=== PATIENT | male | born 1990 | race American Indian/Alaskan Native ===

== ENCOUNTER 2017-03-07 12:42 | Emergency (ER) | payer SELFPAY ==
[2017-03-07 12:43] VITALS: BMI 19.8
[2017-03-07 12:54] VITALS: BP 118/76; PULSE 97; O2SAT 98
[2017-03-07 12:56] VITALS: RESP 18; TEMP 98
[2017-03-07] MEDS ORDERED: Naproxen 550 mg Tab PO STA (13:34)
--- NOTE | 2017-03-07 14:24 | ED PDOC ---
Arrival/HPI - General Chief Complaint: Back Pain Time Seen by Provider: 03/07/17 13:33 Historian: Patient - History of Present Illness Narrative History of Present Illness (Text): 03/07/17 14:37 Patient reports 2 day h/o atraumatic pain in the lower back that is worse with movement which started after he was doing heavy lifting at work yesterday. Otherwise: (-) paresthesias, (-) weakness, (-) acute bowel or bladder dysfunction, (-) urinary symptoms, (-) fever. Has no history of prior back problem. Past Medical History - Provider Review Nursing Documentation Reviewed: Yes - Past History Past History: No Previous - Infectious Disease Hx of Infectious Diseases: None - Tetanus Immunization Tetanus Immunization: Unknown - Musculoskeletal/Rheumatological Hx Falls: No - Psychiatric Hx Depression: No Hx Emotional Abuse: No Hx Physical Abuse: No Hx Substance Use: Yes (occassionally) - Past Surgical History Past Surgical History: No Previous - Anesthesia Hx Anesthesia: No Hx Anesthesia Reactions: No Hx Malignant Hyperthermia: No - Suicidal Assessment Feels Threatened In Home Enviroment: No Family/Social History - Physician Review Nursing Documentation Reviewed: Yes Family/Social History: No Known Family HX Smoking Status: Current Some Days Smoker Hx Alcohol Use: Yes Frequency of alcohol use: Socially Hx Substance Use: Yes (occassionally) Substance used: marijuana Allergies/Home Meds Allergies/Adverse Reactions: Allergies No Known Allergies Allergy (Verified 03/07/17 12:53) Review of Systems - Review of Systems Constitutional: Normal. absent: Fatigue, Weight Change, Fevers Respiratory: Normal. absent: SOB, Cough, Sputum Cardiovascular: Normal. absent: Chest Pain, Palpitations Gastrointestinal: Normal. absent: Abdominal Pain, Stool Changes Musculoskeletal: Normal, Back Pain. absent: Arthralgias, Neck Pain Skin: Normal. absent: Rash, Pruritis, Skin Lesions Physical Exam - Physical Exam Narrative Physical Exam (Text): 03/07/17 14:35 GENERAL APPEARANCE: Patient is awake, alert, oriented x 3, in no acute distress. SKIN: Warm, dry; (-) cyanosis. EYES: (-) conjunctival pallor. ENMT: Mucous membranes moist. NECK: (-) tenderness, (-) stiffness, (-) lymphadenopathy. CHEST AND RESPIRATORY: (-) rales, (-) rhonchi, (-) wheezes; breath sounds equal bilaterally. HEART AND CARDIOVASCULAR: (-) irregularity; (-) murmur, (-) gallop. ABDOMEN AND GI: Soft; (-) tenderness; (-) palpable mass. BACK: Mild diffuse tenderness to the paralumbar area, (+) mild spasm, (+) direct bony tenderness to the L spine, (-) deformity. Straight leg raising (-) bilaterally. EXTREMITIES: (-) deformity. Distal pulses good bilaterally. NEURO AND PSYCH: Mental status as above. Intact sensation bilaterally; normal strength in extension of the knees, plantar and dorsiflexion of the toes. DTRs symmetric. Vital Signs Temp Pulse Resp BP Pulse Ox 03/07/17 12:56 98.0 F 97 H 18 118/76 98 03/07/17 12:48 98 F 97 H 20 118/76 98 Medical Decision Making ED Course and Treatment: 03/07/17 14:20 26 yo M c/o 2 day h/o low back pain, likely lumbar strain. XR L spine ordered. XR L spine: (-) fracture as read by PA. On reevaluation patient states that he feels well and denies any new complaints at this time. Patient has no focal neurological deficits on repeat examination. Patient states that he feels comfortable going home with outpatient follow-up. Patient states he understands to return to the ER right away for new or worsening symptoms and to f/u with workman's comp in 2 days without fail. Patient states that he fully agrees with and understands discharge instructions. States that she agrees with the plan and disposition. Verbalized and repeated discharge instructions and plan. I have given the patient opportunity to ask any additional questions. - RAD Interpretation Radiology Orders: 03/07/17 13:33 LS SPINE WITH OBL > 18 YRS OLD [RAD] Stat - Medication Orders Current Medication Orders: Discontinued Medications Naproxen (Anaprox Ds) 550 mg PO ONCE STA Stop: 03/07/17 13:35 Last Admin: 03/07/17 13:46 Dose: 550 MG - PA / DRAFTER SEISMOGRAPH / Resident Statement /DO has reviewed & agrees with the documentation as recorded. Disposition/Present on Arrival - Present on Arrival Any Indicators Present on Arrival: No History of DVT/PE: No History of Uncontrolled Diabetes: No Urinary Catheter: No History of Decub. Ulcer: No History Surgical Site Infection Following: None - Disposition Have Diagnosis and Disposition been Completed?: Yes Diagnosis: Lumbar strain Disposition: HOME/ ROUTINE Disposition Time: 14:23 Patient Plan: Discharge Patient Problems: Current Active Problems Problem Status Diagnosed Lumbar strain Acute Condition: STABLE Discharge Instructions (ExitCare): Muscle Strain (ED), Acute Low Back Pain (ED) Print Language: MACEDONIAN Additional Instructions: Thank you for letting us take care of you today. You were treated for muscle strain, low back pain. The emergency medical care you received today was directed at your acute symptoms. If you were prescribed any medication, please fill it and take as directed. It may take several days for your symptoms to resolve. Return to the Emergency Department if your symptoms worsen, do not improve, or if you have any other problems. Please contact Workmen's Comp. in 2 days for re-evaluation and follow up. Bring any paperwork you were given at discharge with you along with any medications you are taking to your follow up visit. Our treatment cannot replace ongoing medical care by a primary care provider (PCP) outside of the emergency department. Thank you for allowing the [facility] team to be part of your care today. Prescriptions: Cyclobenzaprine [Cyclobenzaprine HCl] 10 mg PO TID PRN #15 tab PRN Reason: Muscle Spasm Meloxicam [Mobic] 15 mg PO DAILY #20 tab Referrals: PCP,NO [Primary Care Provider] - Follow up with primary Forms: WORK NOTE
--- NOTE | 2017-03-07 15:38 | RAD ---
PROCEDURE: Lumbar spine 03/07/2017 HISTORY: pain COMPARISON: No prior. FINDINGS: BONES: No acute compression fractures no retropulsed fragments. Minor chronic appearing anterior stature loss of the T12, L1 and to a lesser degree L2 segments. Pedicles are intact. Very slight posterior subluxation L5 over S1. Remaining vertebral bodies otherwise exhibit normal alignment. Facets normally aligned. DISC SPACES: Disc space heights maintained. Facet joints are slightly overgrown at the L5-S1 and to a lesser degree L4-L5 levels. OTHER FINDINGS: None. IMPRESSION: No acute compression fractures. Very slight posterior subluxation L5 over S1. On minor overgrowth of the facet joints in the lower lumbar levels.
== END 2017-03-07 14:43 | disposition home or self-care (01) ==
LOC: ED 12:42
DX: S39.012A Strain of muscle, fascia and tendon of lower back, initial encounter (principal); X50.9XXA Other and unspecified overexertion or strenuous movements or postures, initial encounter; Y92.89 Other specified places as the place of occurrence of the external cause; Y99.0 Civilian activity done for income or pay

== ENCOUNTER 2017-07-17 19:52 | Emergency (ER) | payer SELFPAY ==
[2017-07-17 19:52] VITALS: BMI 19.8
[2017-07-17 20:07] VITALS: TEMP 98.4
--- NOTE | 2017-07-17 20:20 | ED PDOC ---
Arrival/HPI <Marino Escalera - Last Filed: 07/17/17 20:22> - General Historian: Patient <Rk Valencia - Last Filed: 07/17/17 20:32> - General Chief Complaint: ENT Problem Time Seen by Provider: 07/17/17 20:14 - History of Present Illness Narrative History of Present Illness (Text): 07/17/17 20:14 26 y/o male, no significant pmh, nkda, c/o sorethroat x 2 days. Aching pain, aggravated by swallowing, no drooling, no change in speech, no night sweat, no coughing, no fever or chills, no other medical or psychological complaints. ( Rk Valencia) Past Medical History - Provider Review Nursing Documentation Reviewed: Yes - Past History Past History: No Previous - Infectious Disease Hx of Infectious Diseases: None - Tetanus Immunization Tetanus Immunization: Unknown - Musculoskeletal/Rheumatological Hx Falls: No - Psychiatric Hx Depression: No Hx Emotional Abuse: No Hx Physical Abuse: No Hx Substance Use: Yes (occassionally) - Past Surgical History Past Surgical History: No Previous - Anesthesia Hx Anesthesia: No Hx Anesthesia Reactions: No Hx Malignant Hyperthermia: No - Suicidal Assessment Feels Threatened In Home Enviroment: No <Rk Valencia - Last Filed: 07/17/17 20:32> Family/Social History - Physician Review Nursing Documentation Reviewed: Yes Family/Social History: Unknown Family HX Smoking Status: Current Some Days Smoker Hx Alcohol Use: Yes Hx Substance Use: Yes (occassionally) Substance used: marijuana <Rk Valencia - Last Filed: 07/17/17 20:32> Allergies/Home Meds <Marino Escalera - Last Filed: 07/17/17 20:22> <Rk Valencia - Last Filed: 07/17/17 20:32> Allergies/Adverse Reactions: Allergies No Known Allergies Allergy (Verified 07/17/17 20:07) Review of Systems - Review of Systems Constitutional: absent: Fatigue, Fevers Eyes: absent: Vision Changes ENT: Sore Throat. absent: Hearing Changes Respiratory: absent: SOB, Cough Cardiovascular: absent: Chest Pain Gastrointestinal: absent: Abdominal Pain, Nausea, Vomiting Skin: absent: Rash, Pruritis Neurological: absent: Headache, Dizziness <Rk Valencia - Last Filed: 07/17/17 20:32> Physical Exam Vital Signs Reviewed: Yes Temperature: Afebrile Blood Pressure: Normal Pulse: Regular Respiratory Rate: Normal Appearance: Positive for: Well-Appearing, Non-Toxic Pain Distress: Moderate Mental Status: Positive for: Alert and Oriented X 3 - Systems Exam Head: Present: Atraumatic, Normocephalic Pupils: Present: PERRL Extroacular Muscles: Present: EOMI Conjunctiva: Present: Normal Mouth: Present: Moist Mucous Membranes Pharnyx: Present: ERYTHEMA, EXUDATE, TONSILS ENLARGED. No: Peritonsilar Swelling, Uvular Deviation, Muffled/Hoarse Voice, Strider, Soft Palate/Uvular Edema Neck: Present: Normal Range of Motion Respiratory/Chest: Present: Clear to Auscultation, Good Air Exchange. No: Respiratory Distress, Accessory Muscle Use Cardiovascular: Present: Regular Rate and Rhythm, Normal S1, S2. No: Murmurs Abdomen: Present: Normal Bowel Sounds. No: Tenderness, Distention, Peritoneal Signs Back: Present: Normal Inspection Upper Extremity: Present: Normal Inspection. No: Cyanosis, Edema Lower Extremity: Present: Normal Inspection. No: Edema Neurological: Present: GCS=15, Speech Normal, Motor Func Grossly Intact, Gait Normal, Memory Normal Skin: Present: Warm, Dry, Normal Color. No: Rashes Psychiatric: Present: Alert, Oriented x 3, Normal Insight, Normal Concentration <Rk Valencia - Last Filed: 07/17/17 20:32> Vital Signs Temp Pulse Resp BP Pulse Ox 07/17/17 20:04 98.4 F 83 20 113/80 98 Medical Decision Making <Marino Escalera - Last Filed: 07/17/17 20:22> <Rk Valencia - Last Filed: 07/17/17 20:32> ED Course and Treatment: 07/17/17 20:29 -augment/toradol/decadron -Discharge home with augmentin, motrin, soft food diet, stay hydrated, bed rest , follow up with your own pmd and ENT within 2 days, return to the ER for any new or worsening signs or symptoms. (Rk Valencia) - PA / RUG CLEANER / Resident Statement MD/DO has reviewed & agrees with the documentation as recorded. <Marino Escalera - Last Filed: 07/17/17 20:22> - PA / RUG CLEANER / Resident Statement / has reviewed & agrees with the documentation as recorded. <Rk Valencia - Last Filed: 07/17/17 20:32> Disposition/Present on Arrival <Marino Escalera - Last Filed: 07/17/17 20:22> - Present on Arrival Any Indicators Present on Arrival: No History of DVT/PE: No History of Uncontrolled Diabetes: No Urinary Catheter: No History of Decub. Ulcer: No History Surgical Site Infection Following: None - Disposition Have Diagnosis and Disposition been Completed?: Yes Disposition Time: 20:31 Patient Plan: Discharge <Rk Valencia - Last Filed: 07/17/17 20:32> - Disposition Diagnosis: Tonsillitis with exudate Disposition: HOME/ ROUTINE Condition: GOOD Additional Instructions: -Discharge home with augmentin, motrin, soft food diet, stay hydrated, bed rest , follow up with your own pmd and ENT within 2 days, return to the ER for any new or worsening signs or symptoms. Prescriptions: Amoxicillin/Clavulanate [Augmentin 875 MG-125 MG] 1 tab PO BID #20 tab Ibuprofen [Motrin Tab] 600 mg PO QID PRN #24 tab PRN Reason: Other Referrals: PCP,NO [Primary Care Provider] - Follow up with primary [facility] [place] [Outside] - Follow up with primary Bryan Strong DO [Staff Provider] - Follow up with primary Forms: [employer] (Burmese)
[2017-07-17] MEDS ORDERED: Amoxicillin-Clav 875-125 mg Tab PO STA (20:26)
[2017-07-17 22:01] VITALS: BP 114/82; PULSE 79; RESP 16; O2SAT 100
== END 2017-07-17 21:00 | disposition home or self-care (01) ==
LOC: ED 19:52
DX: J03.90 Acute tonsillitis, unspecified (principal); F17.210 Nicotine dependence, cigarettes, uncomplicated
CPT/HCPCS: 96372; 99283; J1100; J1885

== ENCOUNTER 2017-08-29 15:09 | Emergency (ER) | payer OTHER ==
[2017-08-29 15:10] VITALS: BMI 19.8
[2017-08-29 15:19] VITALS: BP 105/70; PULSE 83; RESP 18; TEMP 99
[2017-08-29] MEDS ORDERED: Fluorescein 1 mg Ophthalmic Strip OD ONE (15:38)
[2017-08-29] MEDS ORDERED: Fluorescein 1 mg Ophthalmic Strip OU ONE (15:42)
--- NOTE | 2017-08-29 15:46 | ED PDOC ---
Arrival/HPI <Juan Pablo Wilkinson - Last Filed: 08/29/17 16:17> - General Historian: Patient <Indu Zamudio - Last Filed: 08/29/17 16:25> - General Time Seen by Provider: 08/29/17 15:10 - History of Present Illness Narrative History of Present Illness (Text): 26 year old male with a past medical history of eczema who presents with right lateral lid irritation. 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 His symptoms are aggravated anytime he enters or leaves the freezer he works in. He reports that he has been applying warm compresses to the right eye at night which have improved his symptoms. Upon awakening this mornings, his right lateral lid was somewhat swollen and crusted over. He denies any visual changes, eye pain with movement, but admits to generalized itchiness of the eyes. 08/29/17 16:00 (Juan Pablo Wilkinson) Past Medical History - Provider Review Nursing Documentation Reviewed: Yes - Past History Past History: No Previous - Infectious Disease Hx of Infectious Diseases: None - Tetanus Immunization Tetanus Immunization: Unknown - Cardiac Hx Cardiac Disorders: No - Pulmonary Hx Respiratory Disorders: No - Neurological Hx Neurological Disorder: No - HEENT Hx HEENT Disorder: No - Renal Hx Renal Disorder: No - Endocrine/Metabolic Hx Endocrine Disorders: No - Hematological/Oncological Hx Blood Disorders: No - Integumentary Hx Dermatological Disorder: No - Musculoskeletal/Rheumatological Hx Falls: No - Gastrointestinal Hx Gastrointestinal Disorders: No - Genitourinary/Gynecological Hx Genitourinary Disorders: No - Psychiatric Hx Psychophysiologic Disorder: No Hx Depression: No Hx Emotional Abuse: No Hx Physical Abuse: No Hx Substance Use: Yes (occassionally) - Past Surgical History Past Surgical History: No Previous - Anesthesia Hx Anesthesia: No Hx Anesthesia Reactions: No Hx Malignant Hyperthermia: No - Suicidal Assessment Feels Threatened In Home Enviroment: No <Juan Pablo Wilkinson - Last Filed: 08/29/17 16:17> Family/Social History - Physician Review Nursing Documentation Reviewed: Yes Family/Social History: No Known Family HX Smoking Status: Current Some Days Smoker Hx Alcohol Use: Yes Hx Substance Use: Yes (occassionally) Substance used: marijuana <Juan Pablo Wilkinson - Last Filed: 08/29/17 16:17> Allergies/Home Meds <Juan Pablo Wilkinson - Last Filed: 08/29/17 16:17> <Indu Zamudio - Last Filed: 08/29/17 16:25> Allergies/Adverse Reactions: Allergies Penicillins Allergy (Verified 08/29/17 15:36) ITCHING Review of Systems - Review of Systems Constitutional: Normal. absent: Fatigue, Fevers Eyes: absent: Vision Changes, Photophobia, Eye Pain ENT: Normal. absent: Tinnitus, Rhinorrhea Respiratory: absent: SOB, Cough, Sputum Cardiovascular: absent: Chest Pain, Palpitations, Edema Gastrointestinal: absent: Abdominal Pain, Stool Changes, Constipation Genitourinary Male: absent: Dysuria, Frequency, Hematuria Musculoskeletal: absent: Arthralgias, Back Pain, Neck Pain Skin: Rash, Skin Lesions. absent: Pruritis Neurological: absent: Headache, Dizziness, Focal Weakness Hemo/Lymphatic: absent: Easy Bleeding, Easy Bruising Psychiatric: absent: Anxiety, Depression <Juan Pablo Wilkinson - Last Filed: 08/29/17 16:17> Physical Exam Temperature: Afebrile Blood Pressure: Normal Pulse: Regular Respiratory Rate: Normal Appearance: Positive for: Well-Appearing Pain Distress: None Mental Status: Positive for: Alert and Oriented X 3 - Systems Exam Head: Present: Atraumatic, Normocephalic Pupils: Present: PERRL Extroacular Muscles: Present: EOMI Conjunctiva: Present: Injected (right eye) Ears: Present: Normal Mouth: Present: Moist Mucous Membranes Respiratory/Chest: Present: Clear to Auscultation, Good Air Exchange. No: Respiratory Distress, Accessory Muscle Use Cardiovascular: Present: Regular Rate and Rhythm, Normal S1, S2 Abdomen: Present: Normal Bowel Sounds. No: Tenderness, Distention Back: Present: Normal Inspection. No: CVA Tenderness Upper Extremity: Present: Normal Inspection. No: Cyanosis, Edema Lower Extremity: Present: Normal Inspection. No: Edema, CALF TENDERNESS Neurological: Present: CN II-XII Intact, Speech Normal Skin: Present: Warm, Dry, Normal Color Psychiatric: Present: Alert, Oriented x 3, Normal Insight <Juan Pablo Wilkinson - Last Filed: 08/29/17 16:17> Vital Signs Temp Pulse Resp BP Pulse Ox 08/29/17 16:05 18 99 08/29/17 15:20 99.0 F 83 18 105/70 97 08/29/17 15:18 99.0 F 83 18 105/70 97 Medical Decision Making <Juan Pablo Wilkinson - Last Filed: 08/29/17 16:17> <Indu Zamudio - Last Filed: 08/29/17 16:25> ED Course and Treatment: 0.5% of Tetracaine drop applied to OD followed by fluorescein dye. OD was examined under Myers UV light, no corneal abrasion or corneal ulcers noted. 08/29/17 16:12 (Juan Pablo Wilkinson) 08/29/17 In agreement with resident note, which includes further HPI details. Patient was seen and evaluated with resident, came up with plan and treatment together. (Indu Zamudio) - Medication Orders Current Medication Orders: Discontinued Medications Fluorescein Sodium (Lrtto-S-Qrhdk A.T.) 1 mg OD ONCE ONE Stop: 08/29/17 15:39 Fluorescein Sodium (Ozesh-P-Hdqsf A.T.) 1 mg OU ONCE ONE Stop: 08/29/17 15:43 <Juan Pablo Wilkinson - Last Filed: 08/29/17 16:17> - PA / RESEARCH INSTRUCTOR / Resident Statement MD/DO has reviewed & agrees with the documentation as recorded. MD/DO has examined the patient and agrees with the treatment plan. - Scribe Statement The provider has reviewed the documentation as recorded by the Scribe <Indu Zamudio - Last Filed: 08/29/17 16:25> - Scribe Statement Angela Hoyos Provider Scribe Attestation: All medical record entries made by the Scribe were at my direction and personally dictated by me. I have reviewed the chart and agree that the record accurately reflects my personal performance of the history, physical exam, medical decision making, and the department course for this patient. I have also personally directed, reviewed, and agree with the discharge instructions and disposition. (Indu Zamudio) Disposition/Present on Arrival - Present on Arrival Any Indicators Present on Arrival: No History of DVT/PE: No History of Uncontrolled Diabetes: No Urinary Catheter: No History of Decub. Ulcer: No History Surgical Site Infection Following: None - Disposition Have Diagnosis and Disposition been Completed?: Yes Disposition Time: 16:16 Patient Plan: Discharge <Juan Pablo Wilkinson - Last Filed: 08/29/17 16:17> - Disposition Patient Plan: Discharge <Indu Zamudio - Last Filed: 08/29/17 16:25> - Disposition Diagnosis: Eye irritation Disposition: HOME/ ROUTINE Condition: GOOD Additional Instructions: 1) Please return to nearest ED should your symptoms worsen 2) Please take any medication prescribed as directed. Prescriptions: Erythromycin 0.5% [Ilytocin] 3.5 gm OD BID #1 tube Olopatadine HCl [Pataday] 2.5 ml OD BID #1 drops Forms: WORK NOTE
[2017-08-29 16:06] VITALS: O2SAT 99
== END 2017-08-29 16:05 | disposition home or self-care (01) ==
LOC: ED 15:09
DX: H57.8 Other specified disorders of eye and adnexa (principal)

== ENCOUNTER 2018-01-02 12:40 | Emergency (ER) | payer OTHER ==
[2018-01-02 12:42] VITALS: BMI 19.8
[2018-01-02 13:07] VITALS: BP 118/73; PULSE 72; RESP 18; TEMP 98.6; O2SAT 98
--- NOTE | 2018-01-02 13:24 | ED PDOC ---
Arrival/HPI - General Chief Complaint: Upper Extremity Problem/Injury Time Seen by Provider: 01/02/18 13:12 Past Medical History - Past History Past History: No Previous - Infectious Disease Hx of Infectious Diseases: None - Tetanus Immunization Tetanus Immunization: Unknown - Cardiac Hx Cardiac Disorders: No - Pulmonary Hx Respiratory Disorders: No - Neurological Hx Neurological Disorder: No - HEENT Hx HEENT Disorder: No - Renal Hx Renal Disorder: No - Endocrine/Metabolic Hx Endocrine Disorders: No - Hematological/Oncological Hx Blood Disorders: No - Integumentary Hx Dermatological Disorder: No - Musculoskeletal/Rheumatological Hx Falls: No - Gastrointestinal Hx Gastrointestinal Disorders: No - Genitourinary/Gynecological Hx Genitourinary Disorders: No - Psychiatric Hx Psychophysiologic Disorder: No Hx Depression: No Hx Emotional Abuse: No Hx Physical Abuse: No Hx Substance Use: Yes (occassionally) - Past Surgical History Past Surgical History: No Previous - Anesthesia Hx Anesthesia: No Hx Anesthesia Reactions: No Hx Malignant Hyperthermia: No - Suicidal Assessment Feels Threatened In Home Enviroment: No Family/Social History Family/Social History: No Known Family HX Smoking Status: Current Some Days Smoker Hx Alcohol Use: Yes Frequency of alcohol use: Socially Hx Substance Use: Yes (occassionally) Substance used: marijuana Allergies/Home Meds Allergies/Adverse Reactions: Allergies Penicillins Allergy (Verified 01/02/18 13:07) ITCHING Physical Exam Vital Signs Temp Pulse Resp BP Pulse Ox 01/02/18 13:03 98.6 F 72 18 118/73 98 Medical Decision Making - Medication Orders Current Medication Orders: Discontinued Medications Ibuprofen (Motrin Tab) 600 mg PO STAT STA Stop: 01/02/18 13:22 Last Admin: 01/02/18 13:28 Dose: 600 mg MAR Pain/Vitals Document 01/02/18 13:28 ALEXANDRA (Rec: 01/02/18 13:30 ALEXANDRA [id number]) Pain Reassessment Is This A Pain ReAssessment? Yes Sleep Is patient sleeping during reassessment? No Presence of Pain Presence of Pain Yes Pain Scale Used Pain Scale Used Numeric Location Left, Right or Bilateral Right Pain Location Body Site Arm Description Intermittent Disposition/Present on Arrival - Present on Arrival Any Indicators Present on Arrival: No History of DVT/PE: No History of Uncontrolled Diabetes: No Urinary Catheter: No History of Decub. Ulcer: No History Surgical Site Infection Following: None - Disposition Have Diagnosis and Disposition been Completed?: Yes Diagnosis: Neuropraxia of right upper extremity Disposition: HOME/ ROUTINE Disposition Time: 13:30 Patient Plan: Discharge Condition: STABLE Prescriptions: Ibuprofen [Motrin] 600 mg PO TID PRN #10 tab PRN Reason: Pain, Moderate (4-7) Referrals: PCP,NO [Primary Care Provider] - Follow up with primary Forms: [employer] ([place]), WORK NOTE
--- NOTE | 2018-01-02 13:26 | ED PDOC ---
Arrival/HPI - General Chief Complaint: Upper Extremity Problem/Injury Time Seen by Provider: 01/02/18 13:12 - History of Present Illness Narrative History of Present Illness (Text): 01/02/18 13:19 A 27 year old male, whose past medical history includes eczema, presents to the emergency department complaining of right upper arm pain. Patient reports was fixing stove and felt a sudden shock. Had experienced some tingling to right arm. The following day, patient began experiencing pain. Patient became concerned and decided to come to the ER for further evaluation. No PMD Symptom Onset: Sudden, Gradual Symptom Course: Unchanged Past Medical History - Provider Review Nursing Documentation Reviewed: Yes - Past History Past History: No Previous - Infectious Disease Hx of Infectious Diseases: None - Tetanus Immunization Tetanus Immunization: Unknown - Cardiac Hx Cardiac Disorders: No - Pulmonary Hx Respiratory Disorders: No - Neurological Hx Neurological Disorder: No - HEENT Hx HEENT Disorder: No - Renal Hx Renal Disorder: No - Endocrine/Metabolic Hx Endocrine Disorders: No - Hematological/Oncological Hx Blood Disorders: No - Integumentary Hx Dermatological Disorder: No - Musculoskeletal/Rheumatological Hx Falls: No - Gastrointestinal Hx Gastrointestinal Disorders: No - Genitourinary/Gynecological Hx Genitourinary Disorders: No - Psychiatric Hx Psychophysiologic Disorder: No Hx Depression: No Hx Emotional Abuse: No Hx Physical Abuse: No Hx Substance Use: Yes (occassionally) - Past Surgical History Past Surgical History: No Previous - Anesthesia Hx Anesthesia: No Hx Anesthesia Reactions: No Hx Malignant Hyperthermia: No - Suicidal Assessment Feels Threatened In Home Enviroment: No Family/Social History - Physician Review Nursing Documentation Reviewed: Yes Family/Social History: No Known Family HX Smoking Status: Current Some Days Smoker Hx Alcohol Use: Yes Frequency of alcohol use: Socially Hx Substance Use: Yes (occassionally) Substance used: marijuana Allergies/Home Meds Allergies/Adverse Reactions: Allergies Penicillins Allergy (Verified 01/02/18 13:07) ITCHING Review of Systems - Physician Review All systems were reviewed & negative as marked: Yes - Review of Systems Constitutional: absent: Fevers, Night Sweats Musculoskeletal: Other (right upper arm pain) Neurological: absent: Headache, Dizziness, Focal Weakness Physical Exam Vital Signs Reviewed: Yes Vital Signs Temp Pulse Resp BP Pulse Ox 01/02/18 13:03 98.6 F 72 18 118/73 98 Temperature: Afebrile Blood Pressure: Normal Pulse: Regular Respiratory Rate: Normal Appearance: Positive for: Well-Appearing Pain Distress: None Mental Status: Positive for: Alert and Oriented X 3 - Systems Exam Head: Present: Atraumatic, Normocephalic Pupils: Present: PERRL Extroacular Muscles: Present: EOMI Conjunctiva: Present: Normal Mouth: Present: Moist Mucous Membranes Neck: Present: Normal Range of Motion Respiratory/Chest: Present: Clear to Auscultation, Good Air Exchange. No: Respiratory Distress, Accessory Muscle Use Cardiovascular: Present: Regular Rate and Rhythm, Normal S1, S2. No: Murmurs Abdomen: Present: Normal Bowel Sounds. No: Tenderness, Distention, Peritoneal Signs Back: Present: Normal Inspection Upper Extremity: Present: Normal Inspection, Normal ROM, NORMAL PULSES, Neurovascularly Intact, Other (right upper arm soreness). No: Cyanosis, Edema Lower Extremity: Present: Normal Inspection. No: Edema Neurological: Present: GCS=15, CN II-XII Intact, Speech Normal Skin: Present: Warm, Dry, Normal Color. No: Rashes Psychiatric: Present: Alert, Oriented x 3, Normal Insight, Normal Concentration Medical Decision Making ED Course and Treatment: 01/02/18 13:21 Impression: 27 year old male with right upper arm pain. No acute findings on physical examination. Plan: -- Motrin -- Reassess and disposition Prior Visits: Notes and results from previous visits were reviewed. Patient was last seen in the emergency department on 08/29/2017 for right lateral lid irritation. Patient was d/c home. Progress Notes: - Medication Orders Current Medication Orders: Discontinued Medications Ibuprofen (Motrin Tab) 600 mg PO STAT STA Stop: 01/02/18 13:22 Last Admin: 01/02/18 13:28 Dose: 600 mg MAR Pain/Vitals Document 01/02/18 13:28 ALEXANDRA (Rec: 01/02/18 13:30 ALEXANDRA [id number]) Pain Reassessment Is This A Pain ReAssessment? Yes Sleep Is patient sleeping during reassessment? No Presence of Pain Presence of Pain Yes Pain Scale Used Pain Scale Used Numeric Location Left, Right or Bilateral Right Pain Location Body Site Arm Description Intermittent - Scribe Statement The provider has reviewed the documentation as recorded by the Rg Gustafson Provider Scribe Attestation: All medical record entries made by the Scribe were at my direction and personally dictated by me. I have reviewed the chart and agree that the record accurately reflects my personal performance of the history, physical exam, medical decision making, and the department course for this patient. I have also personally directed, reviewed, and agree with the discharge instructions and disposition. Disposition/Present on Arrival - Present on Arrival Any Indicators Present on Arrival: No History of DVT/PE: No History of Uncontrolled Diabetes: No Urinary Catheter: No History of Decub. Ulcer: No History Surgical Site Infection Following: None - Disposition Have Diagnosis and Disposition been Completed?: Yes Diagnosis: Neuropraxia of right upper extremity Disposition: HOME/ ROUTINE Disposition Time: 13:30 Patient Plan: Discharge Condition: STABLE Prescriptions: Ibuprofen [Motrin] 600 mg PO TID PRN #10 tab PRN Reason: Pain, Moderate (4-7) Referrals: PCP,NO [Primary Care Provider] - Follow up with primary Forms: [facility] (Mexican), WORK NOTE
--- NOTE | 2018-01-02 20:37 | CARD ---
APPROVED REPORT EKG Measurement Heart [id number] <Conclusion> Normal sinus rhythm Possible Left atrial enlargement Borderline ECG
== END 2018-01-02 13:27 | disposition home or self-care (01) ==
LOC: ED 12:40
DX: S44.91XA Injury of unspecified nerve at shoulder and upper arm level, right arm, initial encounter (principal); W86.8XXA Exposure to other electric current, initial encounter; Y92.89 Other specified places as the place of occurrence of the external cause

== ENCOUNTER 2018-01-30 14:59 | Emergency (ER) | payer OTHER ==
[2018-01-30 15:00] VITALS: BMI 19.8
[2018-01-30 15:11] VITALS: RESP 18; TEMP 97.7
--- NOTE | 2018-01-30 15:25 | ED PDOC ---
Arrival/HPI - General Chief Complaint: Abnormal Skin Integrity Time Seen by Provider: 01/30/18 15:19 Historian: Patient - History of Present Illness Narrative History of Present Illness (Text): 01/30/18 15:19 27 y/o male, pmh including cellulitis, penicillin allergy, last tetanus under 7 years ago, c/o lt. foot itching and pain x 2-3 weeks. Pt. stated that he has chronic sweating feet and sweat alot during the work, been having itching between the toes and lt. foot, been scratching the lt. foot dorsum region for the past 2-3 weeks, noticed to have pain yesterday which radiating to the lt. calf region, no numbness or tingling, no back pain, no urinary or bowel incontinence or retentin, no night sweat, no other medical or psychological complaints. Past Medical History - Provider Review Nursing Documentation Reviewed: Yes - Past History Past History: No Previous - Infectious Disease Hx of Infectious Diseases: None - Tetanus Immunization Tetanus Immunization: Unknown - Cardiac Hx Cardiac Disorders: No - Pulmonary Hx Respiratory Disorders: No - Neurological Hx Neurological Disorder: No - HEENT Hx HEENT Disorder: No - Renal Hx Renal Disorder: No - Endocrine/Metabolic Hx Endocrine Disorders: No - Hematological/Oncological Hx Blood Disorders: No - Integumentary Hx Dermatological Disorder: No - Musculoskeletal/Rheumatological Hx Falls: No - Gastrointestinal Hx Gastrointestinal Disorders: No - Genitourinary/Gynecological Hx Genitourinary Disorders: No - Psychiatric Hx Psychophysiologic Disorder: No Hx Substance Use: Yes (occassionally) - Past Surgical History Past Surgical History: No Previous - Anesthesia Hx Anesthesia: No Hx Anesthesia Reactions: No Hx Malignant Hyperthermia: No - Suicidal Assessment Feels Threatened In Home Enviroment: No Family/Social History - Physician Review Nursing Documentation Reviewed: Yes Family/Social History: Unknown Family HX Smoking Status: Heavy Smoker > 10 Cigarettes Daily Hx Alcohol Use: Yes Frequency of alcohol use: Socially Hx Substance Use: Yes (occassionally) Substance used: marijuana Allergies/Home Meds Allergies/Adverse Reactions: Allergies Penicillins Allergy (Verified 01/30/18 15:11) ITCHING Review of Systems - Review of Systems Constitutional: absent: Fatigue, Fevers Eyes: absent: Vision Changes ENT: absent: Hearing Changes Respiratory: absent: SOB, Cough Cardiovascular: absent: Chest Pain Gastrointestinal: absent: Abdominal Pain, Nausea, Vomiting Musculoskeletal: Myalgias. absent: Arthralgias Skin: Rash, Pruritis, Skin Lesions. absent: Laceration, Abscess, Ulcer, Cellulitis Neurological: absent: Headache, Dizziness Psychiatric: absent: Anxiety, Depression, Suicidal Ideation Physical Exam Vital Signs Reviewed: Yes Vital Signs Temp Pulse Resp BP Pulse Ox 01/30/18 15:06 97.7 F 96 H 18 129/82 97 Temperature: Afebrile Blood Pressure: Normal Pulse: Regular Respiratory Rate: Normal Appearance: Positive for: Well-Appearing, Non-Toxic, Comfortable Pain Distress: Mild Mental Status: Positive for: Alert and Oriented X 3 - Systems Exam Head: Present: Atraumatic, Normocephalic Pupils: Present: PERRL Extroacular Muscles: Present: EOMI Conjunctiva: Present: Normal Neck: Present: Normal Range of Motion Respiratory/Chest: Present: Clear to Auscultation, Good Air Exchange. No: Respiratory Distress, Accessory Muscle Use Cardiovascular: Present: Regular Rate and Rhythm, Normal S1, S2. No: Murmurs Abdomen: Present: Normal Bowel Sounds. No: Tenderness, Distention, Peritoneal Signs Back: Present: Normal Inspection Upper Extremity: Present: Normal Inspection. No: Cyanosis, Edema Lower Extremity: Present: Normal Inspection, Other (Lt. lower extremity: visible approx. [id number] maculepapule rash with skin breaking noted, visible skin lichenification noted between the toes, +DPPT pulses, capillary refill < 2 seconds, neurovascular intact. ). No: Edema Neurological: Present: GCS=15, CN II-XII Intact, Speech Normal Skin: Present: Warm, Dry, Normal Color. No: Rashes Psychiatric: Present: Alert, Oriented x 3, Normal Insight, Normal Concentration Medical Decision Making ED Course and Treatment: 01/30/18 15:29 -LLE venuous doppler -PO cleocin to prophylatic cover from superficial skin bacteria, lotrisone -observe and reassess 01/30/18 17:23 -Pain decreased, feeling much better. 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 - RAD Interpretation Radiology Orders: 01/30/18 15:25 DUPLEX LOWER EXTRM VEIN LEFT [US] Stat LLE Venuous doppler: as per preliminary report, no acute DVT Supervisor Paper Coating: Radiologist - Medication Orders Current Medication Orders: Discontinued Medications Betamethasone/Clotrimazole (Lotrisone) 4 gm TOP STAT STA Stop: 01/30/18 15:29 Last Admin: 01/30/18 15:48 Dose: 4 gm Clindamycin HCl (Cleocin) 300 mg PO STAT STA PRN Reason: Protocol Stop: 01/30/18 15:26 Last Admin: 01/30/18 15:48 Dose: 300 mg Ibuprofen (Motrin Tab) 600 mg PO STAT STA Stop: 01/30/18 15:26 Last Admin: 01/30/18 15:47 Dose: 600 mg - PA / SOFTWARE QUALITY ASSURANCE SPECIALIST / Resident Statement / has reviewed & agrees with the documentation as recorded. Disposition/Present on Arrival - Present on Arrival Any Indicators Present on Arrival: No History of DVT/PE: No History of Uncontrolled Diabetes: No Urinary Catheter: No History of Decub. Ulcer: No History Surgical Site Infection Following: None - Disposition Have Diagnosis and Disposition been Completed?: Yes Diagnosis: Tinea pedis, Visit for wound check Disposition: HOME/ ROUTINE Disposition Time: 15:31 Patient Plan: Discharge Patient Problems: Current Active Problems Problem Status Onset Tinea pedis Acute Visit for wound check Acute Condition: GOOD Additional Instructions: -Discharge home with cleocin, lotrisone cream, motrin, keep the feet dry and clean, avoid wearing contaminated shoes, follow up with your own pmd and shipfitter/manager mechanical within 2 days, return to the ER for any new or worsening signs or symptoms. Prescriptions: Clindamycin [Cleocin] 300 mg PO TID #30 cap Clotrimazole/Betamethasone [Lotrisone] 1 appl EXT BID #60 g Ibuprofen [Motrin] 600 mg PO QID PRN #35 tab PRN Reason: Other Referrals: PCP,NO [Primary Care Provider] - Follow up with primary Erin Pierre MD [Staff Provider] - [place] up [place] [facility] [place] - Follow up with primary Forms: WORK NOTE
[2018-01-30] MEDS ORDERED: Clotrimazole/Betamethasone Cream(15 gm) TOP STA (15:28)
[2018-01-30 17:44] VITALS: BP 124/79; PULSE 78; O2SAT 98
--- NOTE | 2018-01-30 19:19 | US ---
PROCEDURE: Left lower extremity venous US HISTORY: Leg pain and swelling. Evaluate for DVT. PHYSICIAN(S): Mckay Jeffers MD. TECHNIQUE: Duplex sonography and color-flow Doppler with graded compression were used to evaluate the deep venous system of the left lower extremity. FINDINGS: The visualized deep venous system of the left lower extremity is sonographically normal and compressible. Normal wave forms and augmentation are seen. There is no sonographic evidence for deep venous thrombosis in the visualized segments of the left lower extremity. IMPRESSION: 1. No sonographic evidence for deep venous thrombosis in the visualized segments of the left lower extremity.
== END 2018-01-30 17:45 | disposition home or self-care (01) ==
LOC: ED 14:59
DX: B35.3 Tinea pedis (principal); Z51.89 Encounter for other specified aftercare

== ENCOUNTER 2018-04-04 15:58 | Emergency (ER) | payer OTHER ==
[2018-04-04 15:58] VITALS: BMI 19.8
--- NOTE | 2018-04-04 16:17 | ED PDOC ---
Arrival/HPI - General Time Seen by Provider: 04/04/18 16:17 Historian: Patient - History of Present Illness Narrative History of Present Illness (Text): 04/04/18 16:17 Patient is not in the room. Patient still in triage. 04/04/18 17:20 This 27 yo male presents to this ED c/o left foot skin is dry x 2 months. Patient stated he was seen in this ED a month ago for itching foot. Patient was give a cream which it has improved the itching, however sking feels thick and dry. Patient noted a pmh Eczema. Patient also noted right anterior thigh pain. Patient admits similar symptoms in the past. Patient denies trauma, skin rash on his thigh, swelling, ecchymosis, calf pain, leg swelling, groin pain, testicular pain, penil discharge, weakness, paresthesias, or abnormal gait. Time/Duration: Other (see hpi) Context: Home Past Medical History - Provider Review Nursing Documentation Reviewed: Yes - Past History Past History: No Previous - Infectious Disease Hx of Infectious Diseases: None - Tetanus Immunization Tetanus Immunization: Unknown - Cardiac Hx Cardiac Disorders: No - Pulmonary Hx Respiratory Disorders: No - Neurological Hx Neurological Disorder: No - HEENT Hx HEENT Disorder: No - Renal Hx Renal Disorder: No - Endocrine/Metabolic Hx Endocrine Disorders: No - Hematological/Oncological Hx Blood Disorders: No - Integumentary Hx Dermatological Disorder: No - Musculoskeletal/Rheumatological Hx Falls: No - Gastrointestinal Hx Gastrointestinal Disorders: No - Genitourinary/Gynecological Hx Genitourinary Disorders: No - Psychiatric Hx Psychophysiologic Disorder: No Hx Substance Use: Yes (occassionally) - Past Surgical History Past Surgical History: No Previous - Anesthesia Hx Anesthesia: No Hx Anesthesia Reactions: No Hx Malignant Hyperthermia: No - Suicidal Assessment Feels Threatened In Home Enviroment: No Family/Social History - Physician Review Nursing Documentation Reviewed: Yes Family/Social History: Other (noncontributory) Smoking Status: Heavy Smoker > 10 Cigarettes Daily Hx Alcohol Use: Yes Hx Substance Use: Yes (occassionally) Substance used: marijuana Allergies/Home Meds Allergies/Adverse Reactions: Allergies Penicillins Allergy (Verified 04/04/18 16:29) ITCHING Review of Systems - Review of Systems Constitutional: Normal. absent: Fatigue, Weight Change, Fevers, Night Sweats Eyes: Normal ENT: Normal Respiratory: Normal. absent: SOB, Cough, Sputum, Wheezing Cardiovascular: Normal. absent: Chest Pain, Palpitations Gastrointestinal: Normal. absent: Abdominal Pain, Nausea, Vomiting Genitourinary Male: Normal. absent: Dysuria, Frequency, Hematuria Musculoskeletal: Normal Skin: Other (see hpi) Neurological: Normal. absent: Headache, Dizziness, Focal Weakness, Gait Changes , Speech Changes, Facial Droop, Disequilibrium Endocrine: Normal Hemo/Lymphatic: Normal Psychiatric: Normal Physical Exam Vital Signs Temp Pulse Resp BP Pulse Ox 04/04/18 16:22 98.1 F 73 16 108/66 100 Temperature: Afebrile Blood Pressure: Normal Pulse: Regular Respiratory Rate: Normal Appearance: Positive for: Well-Appearing, Non-Toxic, Comfortable Pain Distress: None Mental Status: Positive for: Alert and Oriented X 3 - Systems Exam Head: Present: Atraumatic, Normocephalic Pupils: Present: PERRL Extroacular Muscles: Present: EOMI Conjunctiva: Present: Normal Mouth: Present: Moist Mucous Membranes Neck: Present: Normal Range of Motion Genitourinary Male: Present: Other (patient declined examination.) Back: Present: Normal Inspection. No: CVA Tenderness Upper Extremity: Present: Normal Inspection, Normal ROM. No: Cyanosis, Edema Lower Extremity: Present: Normal ROM, Other ((+) eczema like skin dryness on dorsal aspect of left foot. No cellulitis, no abscess, no calf tenderness b/l, no leg swelling b/l.). No: Edema Neurological: Present: GCS=15, CN II-XII Intact, Speech Normal, Motor Func Grossly Intact, Normal Sensory Function, Normal Cerebellar Funct, Gait Normal, Memory Normal Skin: Present: Warm, Dry, Normal Color. No: Rashes Psychiatric: Present: Alert, Oriented x 3, Normal Insight, Normal Concentration Medical Decision Making ED Course and Treatment: 04/04/18 17:47 Re-evaluation. Patient feels better. Discussed results and plan with patient who expresses understanding. All questions answered and there is agreement with the plan to discharge home with instructions. Patient stable for discharge. Return if symptoms persist or worsen. 04/04/18 17:47 Previous charts, labs and imaging report were reviewed. Re-evaluation Time: 17:47 Reassessment Condition: Re-examined, Unchanged Disposition/Present on Arrival - Present on Arrival Any Indicators Present on Arrival: No History of DVT/PE: No History of Uncontrolled Diabetes: No Urinary Catheter: No History Surgical Site Infection Following: None - Disposition Have Diagnosis and Disposition been Completed?: Yes Diagnosis: Eczema, Quadriceps strain Disposition: HOME/ ROUTINE Disposition Time: 17:48 Patient Plan: Discharge Patient Problems: Current Active Problems Problem Status Onset Eczema Acute Quadriceps strain Acute Condition: GOOD Discharge Instructions (ExitCare): Eczema (Atopic Dermatitis) (DC) Additional Instructions: Call clinic office for follow up visit. you need to contact division operations manager for revaluation. Do not apply cream on face. return to emergency if symptoms worsen. Prescriptions: Ibuprofen [Motrin] 400 mg PO Q8H PRN #20 tab PRN Reason: Pain, Severe (8-10) Nystatin/Triamcinolone Acetoni [Mycolog II OINT] 1 applic TOP BID #1 tube Referrals: PCPHUMBERTO [Primary Care Provider] - Follow up with primary [facility] [Outside] - Follow up with primary [facility] [Outside] - Follow up with primary Erin Pierre MD [Staff Provider] - Follow up with primary Forms: WORK NOTE
[2018-04-04 16:27] VITALS: RESP 16; TEMP 98.1
[2018-04-04 18:02] VITALS: BP 118/74; PULSE 74; O2SAT 99
== END 2018-04-04 18:02 | disposition home or self-care (01) ==
LOC: ED 15:58
DX: S76.119A Strain of unspecified quadriceps muscle, fascia and tendon, initial encounter (principal); L30.9 Dermatitis, unspecified; F17.210 Nicotine dependence, cigarettes, uncomplicated

== ENCOUNTER 2018-10-11 22:55 | Emergency (ER) | payer OTHER ==
[2018-10-11 23:05] VITALS: BMI 22.0
[2018-10-11 23:09] VITALS: BP 126/85; PULSE 76; RESP 16; TEMP 97.7; O2SAT 99
--- NOTE | 2018-10-11 23:33 | ED PDOC ---
Arrival/HPI - General Historian: Patient - History of Present Illness Narrative History of Present Illness (Text): 10/11/18 23:30 27 y/o male, no significant pmh, penicillin allergy, c/o lt. ankle injury and pain x 2 days. Pt. stated that he twisted last night between pallets, been having pain, walking with limping, no foot pain, no calf or thigh pain, no rash, no numbness or tingling, no other medical or psychological complaints. <Rk Valencia - Last Filed: 10/12/18 16:38> <Tavo Stephenson - Last Filed: 10/14/18 11:33> - General Chief Complaint: Lower Extremity Problem/Injury Past Medical History - Provider Review Nursing Documentation Reviewed: Yes - Past History Past History: No Previous - Infectious Disease Hx of Infectious Diseases: None - Tetanus Immunization Tetanus Immunization: Unknown - Cardiac Hx Cardiac Disorders: No - Pulmonary Hx Respiratory Disorders: No - Neurological Hx Neurological Disorder: No - HEENT Hx HEENT Disorder: No - Renal Hx Renal Disorder: No - Endocrine/Metabolic Hx Endocrine Disorders: No - Hematological/Oncological Hx Blood Disorders: No - Integumentary Hx Dermatological Disorder: No - Musculoskeletal/Rheumatological Hx Falls: No - Gastrointestinal Hx Gastrointestinal Disorders: No - Genitourinary/Gynecological Hx Genitourinary Disorders: No - Psychiatric Hx Psychophysiologic Disorder: No Hx Substance Use: Yes (occassionally) - Past Surgical History Past Surgical History: No Previous - Anesthesia Hx Anesthesia: No Hx Anesthesia Reactions: No Hx Malignant Hyperthermia: No - Suicidal Assessment Feels Threatened In Home Enviroment: No <Rk Valencia - Last Filed: 10/12/18 16:38> Family/Social History - Physician Review Nursing Documentation Reviewed: Yes Family/Social History: Unknown Family HX Smoking Status: Heavy Smoker > 10 Cigarettes Daily Hx Alcohol Use: Yes Hx Substance Use: Yes (occassionally) Substance used: marijuana <Rk Valencia - Last Filed: 10/12/18 16:38> Allergies/Home Meds <Rk Valencia - Last Filed: 10/12/18 16:38> <Tavo Stephenson - Last Filed: 10/14/18 11:33> Allergies/Adverse Reactions: Allergies Penicillins Allergy (Verified 04/04/18 16:29) ITCHING Review of Systems - Review of Systems Constitutional: absent: Fatigue, Fevers Eyes: absent: Vision Changes ENT: absent: Hearing Changes Respiratory: absent: SOB, Cough Cardiovascular: absent: Chest Pain Gastrointestinal: absent: Abdominal Pain, Nausea, Vomiting Musculoskeletal: Arthralgias. absent: Back Pain, Neck Pain, Joint Swelling Skin: absent: Rash, Pruritis, Skin Lesions Neurological: absent: Headache, Dizziness Psychiatric: absent: Anxiety, Depression, Suicidal Ideation <Rk Valencia Q - Last Filed: 10/12/18 16:38> Physical Exam Vital Signs Reviewed: Yes Vital Signs Temp Pulse Resp BP Pulse Ox 10/11/18 23:05 97.7 F 76 16 126/85 99 Temperature: Afebrile Blood Pressure: Normal Pulse: Regular Respiratory Rate: Normal Appearance: Positive for: Well-Appearing, Non-Toxic, Comfortable Pain Distress: Mild Mental Status: Positive for: Alert and Oriented X 3 - Systems Exam Head: Present: Atraumatic, Normocephalic Pupils: Present: PERRL Extroacular Muscles: Present: EOMI Conjunctiva: Present: Normal Mouth: Present: Moist Mucous Membranes Neck: Present: Normal Range of Motion Respiratory/Chest: Present: Clear to Auscultation, Good Air Exchange. No: Respiratory Distress, Accessory Muscle Use Cardiovascular: Present: Regular Rate and Rhythm, Normal S1, S2. No: Murmurs Abdomen: No: Tenderness, Distention, Peritoneal Signs Back: Present: Normal Inspection Upper Extremity: Present: Normal Inspection. No: Cyanosis, Edema Lower Extremity: Present: Normal Inspection, Other (Lt. ankle/foot: +ttp on the medical aspect of the ankle, no swelling, no foot tenderness or swelling, negative mona and alves signs, FROM without limitation, sensation intact, motor 5/5, +DPPT pulses, capillary refill< 2 seconds, neurovasular intact. ). No: Edema Neurological: Present: GCS=15, CN II-XII Intact, Speech Normal Skin: Present: Warm, Dry, Normal Color. No: Rashes Psychiatric: Present: Alert, Oriented x 3, Normal Insight, Normal Concentration <Rk Valencia Q - Last Filed: 10/12/18 16:38> Vital Signs Temp Pulse Resp BP Pulse Ox 10/12/18 01:28 97.7 F 76 16 126/85 99 10/11/18 23:05 97.7 F 76 16 126/85 99 <Coccaro,Tavo - Last Filed: 10/14/18 11:33> Medical Decision Making ED Course and Treatment: 10/11/18 23:33 -lt. ankle xray -motrin 10/12/18 00:50 -Pain feels better, -Left ankle show ER wet read: no fracture or dislocation -Sonny wrap applied with neurovascular intact, crutches offered and trained. -Discharge home with naproxen, sonny wrap, crutches, ice compression, non weight bearing, follow up with your own pmd and orthopedic within 2 days, return to the ER for any new or worsening signs or symptoms. - RAD Interpretation Radiology Orders: 10/11/18 23:30 ANKLE LEFT 3 VIEWS ROUTINE [RAD] Stat normal left ankle radiographs. Disabilities Services Officer: Radiologist <Rk Valencia - Last Filed: 10/12/18 16:38> - RAD Interpretation Radiology Orders: 10/11/18 23:30 ANKLE LEFT 3 VIEWS ROUTINE [RAD] Stat - Medication Orders Current Medication Orders: Discontinued Medications Ibuprofen (Motrin Tab) 600 mg PO STAT STA Stop: 10/11/18 23:31 Last Admin: 10/11/18 23:44 Dose: 600 mg MAR Pain/Vitals Document 10/11/18 23:44 OCS (Rec: 10/11/18 23:45 OCS [id number]) Presence of Pain Presence of Pain Yes Pain Scale Used Protocol: PSCALES Pain Scale Used Numeric Location Left, Right or Bilateral Left Pain Location Body Site Ankle Description Constant Aggravating Factors ADL's <Tavo Stephenson - Last Filed: 10/14/18 11:33> - PA / PROTECTION CONSULTANT / Resident Statement MD/DO has reviewed & agrees with the documentation as recorded. <Rk Valencia - Last Filed: 10/12/18 16:38> Disposition/Present on Arrival - Present on Arrival Any Indicators Present on Arrival: No History of DVT/PE: No History of Uncontrolled Diabetes: No Urinary Catheter: No History of Decub. Ulcer: No History Surgical Site Infection Following: None - Disposition Have Diagnosis and Disposition been Completed?: Yes Disposition Time: 01:20 Patient Plan: Discharge <Rk Valencia - Last Filed: 10/12/18 16:38> <Tavo Stephenson - Last Filed: 10/14/18 11:33> - Disposition Diagnosis: Ankle injury, Ankle pain Disposition: HOME/ ROUTINE Condition: IMPROVED Additional Instructions: -Discharge home with naproxen, sonny wrap, crutches, ice compression, non weight bearing, follow up with your own pmd and orthopedic within 2 days, return to the ER for any new or worsening signs or symptoms. Prescriptions: RX: Naproxen 500 mg PO BID PRN #20 tablet PRN Reason: Other Referrals: Praveen Craft MD [Staff Provider] - Follow up with primary Forms: [employer] ([place]ian), WORK NOTE
--- NOTE | 2018-10-12 10:47 | RAD ---
Date of service: 10/12/2018 PROCEDURE: Left Ankle Radiographs. HISTORY: lt. ankle injury and pain COMPARISON: None available. FINDINGS: BONES: Normal. No fracture. JOINTS: Normal. No osteoarthritis. Ankle mortise maintained. Talar dome intact SOFT TISSUES: Normal. OTHER FINDINGS: None. IMPRESSION: Normal left ankle radiographs. Concordant results with the preliminary interpretation rendered by the emergency department physician procedure.
== END 2018-10-12 01:28 | disposition home or self-care (01) ==
LOC: ED 22:55
DX: S99.912A Unspecified injury of left ankle, initial encounter (principal); X50.1XXA Overexertion from prolonged static or awkward postures, initial encounter; Y92.89 Other specified places as the place of occurrence of the external cause